=== PATIENT | female | born 1935 | race Caucasian/White ===

== ENCOUNTER 2020-09-16 20:20 | Emergency (ER) | payer OTHER ==
[2020-09-16] MEDS ORDERED: AUGMENTIN 875-1 EACH PO (23:26)
== END 2020-09-16 23:35 | disposition home or self-care (01) ==
LOC: ER1 20:20
DX: S81.851A Open bite, right lower leg, initial encounter (principal); E11.9 Type 2 diabetes mellitus without complications; I10 Essential (primary) hypertension; Z90.89 Acquired absence of other organs; Z79.01 Long term (current) use of anticoagulants; Z88.2 Allergy status to sulfonamides; W54.0XXA Bitten by dog, initial encounter; Z23 Encounter for immunization
CPT/HCPCS: 73590; 90471; 90715; 99283

== ENCOUNTER → 2020-12-07 | Outpatient (CLI) | payer OTHER ==
[~2020-12-07] MED LIST: AUGMENTIN 875-1 EACH PO
== END ==
LOC: KOH-I 10:16
DX: R10.9 Unspecified abdominal pain (principal); K59.00 Constipation, unspecified
CPT/HCPCS: 74018